=== PATIENT | male | born 1950 | race African-American/Black ===

== ENCOUNTER 2018-06-16 16:41 | Emergency (ER) | payer MEDICARE, MEDICAID ==
[~2018-06-16] VITALS: Ht 170.2 cm; Wt 89.0 kg
[~2018-06-16 16:41] MED LIST: GLYB5TAB7 PO
[2018-06-16 16:44] VITALS: BP 146/78
== END 2018-06-16 18:42 | disposition home or self-care (01) ==
LOC: ER 16:41
DX: M17.12 Unilateral primary osteoarthritis, left knee (principal); E11.9 Type 2 diabetes mellitus without complications; I10 Essential (primary) hypertension
CPT/HCPCS: 73562; 99283

== ENCOUNTER 2018-12-31 20:53 | Inpatient (IN) | payer MEDICARE, MEDICAID ==
[~2018-12-31] VITALS: Ht 170.2 cm; Wt 109.3 kg
[2018-12-31] MEDS ORDERED: KETOROLAC 30MG/ML VIAL IV STA (23:04)
[2019-01-01] VITALS (9 sets, daily range): BP systolic 125–172; BP diastolic 67–94
[2019-01-01 00:09] LABS: BASOPHILS % 0.6 % (0.0-2.0); EOSINOPHILS % 2.5 % (0.0-5.0); HEMATOCRIT. 30.3 % (42.0-52.0); HEMOGLOBIN. 9.9 g/dL (14.0-18.0); LYMPHOCYTES % 30.8 % (20.0-50.0); MEAN CORPUSCULAR HEMOGLOBIN 28.5 pg (28.0-32.0); MEAN CORPUSCULAR VOLUME 87.4 fL (80.0-94.0); MEAN PLATELET VOLUME 10.6 fl (7.4-10.4); MONOCYTES % 14.1 % (2.0-8.0); PLATELET 153 x1000/uL (130-400); RED BLOOD CELL COUNT 3.47 mill/uL (4.7-6.1); RED CELL DISTRIBUTION WIDTH 13.1 % (11.6-14.6)
[2019-01-01 00:12] LABS: CHLORIDE 110 mEq/L (98-107)
[2019-01-01] MEDS ORDERED: DEXTROSE 50% WATER 50ML SYRINGE IV ONE ×4 (00:39→07:00)
[2019-01-01] MEDS ORDERED: ASPIRIN 325MG TABLET PO SCH (02:00)
[2019-01-01] MEDS ORDERED: ACETAMINOPHEN 325MG TABLET PO PRN (09:45)
[2019-01-01] MEDS ORDERED: ONDANSETRON HCL 4MG/2ML INJ IV PRN (09:45)
[2019-01-01] MEDS ORDERED: DOCUSATE SODIUM 100MG CAPSULE PO PRN (09:45)
[2019-01-01] MEDS: ENOXAPARIN 40MG/0.4ML SYR SUBCUT SCH (11:48)
[2019-01-01] MEDS: CLONIDINE 0.1MG TABLET PO PRN (11:53)
[2019-01-01] MEDS ORDERED: INFLUENZA VIRUS VACCINE(AFLURIA) 0.5ML SYR IM ONE (13:00)
[2019-01-01] MEDS ORDERED: PNEUMOCOCCAL 23-VAL P-SAC VAC 0.5 ML IM ONE (13:00)
[2019-01-01] MEDS: DEXT 5%/0.45% NACL 1000ML 1,000 ML IV SCH (13:46)
[2019-01-01 17:52] LABS: CLARITY URINE CLEAR (CLEAR); COLOR URINE YELLOW (YELLOW); KETONES URINE NEGATIVE (NEGATIVE); LEUKOCYTE ESTERASE URINE NEGATIVE (NEGATIVE); NITRITE URINE NEGATIVE (NEGATIVE); OCCULT BLOOD URINE 1+ (NEGATIVE); PH URINE 5.5 (4.5-8.0); PROTEIN URINE 3+ (NEGATIVE); SPECIFIC GRAVITY URINE 1.014 (1.005-1.030); UROBILINOGEN URINE 0.2 E.U./dL (0.2-1.0)
[2019-01-01] MEDS ORDERED: TEMAZEPAM 15MG CAPSULE PO PRN (18:45)
[2019-01-01] MEDS ORDERED: ATORVASTATIN CALCIUM 40MG TABLET PO SCH (21:00)
[2019-01-01] MEDS ORDERED: DEXTROSE 50% WATER 50ML SYRINGE IV PRN (21:15)
[2019-01-01] MEDS: BLOOD SUGAR DIAGNOSTIC STRIP TEST SCH (21:28)
[2019-01-01] MEDS: INSULIN LISPRO 100 UNITS/ML SUBCUT SCH (21:43)
[2019-01-02] VITALS (8 sets, daily range): BP systolic 124–162; BP diastolic 62–97
[2019-01-02] MEDS: DEXT 5%/0.45% NACL 1000ML 1,000 ML IV SCH (03:33)
[2019-01-02] MEDS: CLONIDINE 0.1MG TABLET PO PRN (05:52)
[2019-01-02] MEDS: BLOOD SUGAR DIAGNOSTIC STRIP TEST SCH ×2 (06:50→11:50)
[2019-01-02] MEDS ORDERED: BLOOD SUGAR DIAGNOSTIC STRIP TEST SCH (06:50)
[2019-01-02] MEDS: CALCIUM ACETATE 667MG CAPSULE PO SCH ×2 (07:20→12:20)
[2019-01-02] MEDS: INSULIN LISPRO 100 UNITS/ML SUBCUT SCH ×2 (07:20→12:20)
[2019-01-02] MEDS ORDERED: INSULIN LISPRO 100 UNITS/ML SUBCUT SCH (07:20)
[2019-01-02 08:10] LABS: BASOPHILS % 0.8 % (0.0-2.0); EOSINOPHILS % 3.6 % (0.0-5.0); HEMATOCRIT. 29.2 % (42.0-52.0); HEMOGLOBIN. 9.4 g/dL (14.0-18.0); LYMPHOCYTES % 21.7 % (20.0-50.0); MEAN CORPUSCULAR HEMOGLOBIN 28.2 pg (28.0-32.0); MEAN PLATELET VOLUME 10.9 fl (7.4-10.4); MONOCYTES % 12.3 % (2.0-8.0); NEUTROPHILS % 61.6 % (40.0-76.0); PLATELET 127 x1000/uL (130-400); RED BLOOD CELL COUNT 3.32 mill/uL (4.7-6.1); RED CELL DISTRIBUTION WIDTH 13.4 % (11.6-14.6)
[2019-01-02 08:12] LABS: PHOSPHORUS 4.4 mg/dL (2.5-4.9)
[2019-01-02] MEDS ORDERED: CALCITRIOL 0.25MCG CAPSULE PO SCH (09:00)
[2019-01-02] MEDS ORDERED: AMLODIPINE 10MG TABLET PO SCH (09:00)
[2019-01-02] MEDS ORDERED: LOSARTAN POTASSIUM 100 MG TABLET PO SCH (09:00)
[2019-01-02] MEDS: ENOXAPARIN 40MG/0.4ML SYR SUBCUT SCH (09:12)
[2019-01-02 10:35] LABS: HEPATITIS B SURFACE ANTIGEN NEGATIVE
== END 2019-01-02 16:50 | disposition home or self-care (01) | DRG 683 ==
LOC: ER 20:53 → 3WST 01-01 01:52 → EDBEDREQ 01-01 01:59 → ENRESERV 01-01 02:15 → CANRESERV 01-01 02:15 → EDBEDREQSVC 01-01 02:21 → ENRESERV 01-01 07:31
PROVIDERS: ADMIT Internal Medicine Nephrology; ATTEND Internal Medicine Nephrology
DX: I13.11 Hypertensive heart and chronic kidney disease without heart failure, with stage 5 chronic kidney disease, or end stage renal disease (principal); N17.9 Acute kidney failure, unspecified; I42.8 Other cardiomyopathies; N18.5 Chronic kidney disease, stage 5; N25.81 Secondary hyperparathyroidism of renal origin; E11.649 Type 2 diabetes mellitus with hypoglycemia without coma; D63.1 Anemia in chronic kidney disease; E86.0 Dehydration; M17.12 Unilateral primary osteoarthritis, left knee; E11.22 Type 2 diabetes mellitus with diabetic chronic kidney disease; E78.5 Hyperlipidemia, unspecified; E83.51 Hypocalcemia; F17.210 Nicotine dependence, cigarettes, uncomplicated; Z71.6 Tobacco abuse counseling; Z90.49 Acquired absence of other specified parts of digestive tract
CPT/HCPCS: 36415; 71045; 73560; 76770; 80048; 80061; 81003; 82962; 83540; 83550; 83735; 83880; 83970; 84100; 84484; 86705; 86803; 87340; 90686; 90732; 93005; 99285; J1650; J1815; J1885

== ENCOUNTER 2021-02-25 11:10 | Inpatient (IN) | payer MEDICARE, MEDICAID ==
[~2021-02-25] VITALS: Ht 182.9 cm; Wt 108.9 kg
[2021-02-25 12:09] LABS: BASOPHILS % 0.1 % (0.0-2.0); HEMATOCRIT. 29.5 % (42.0-52.0); HEMOGLOBIN. 9.5 g/dL (14.0-18.0); LYMPHOCYTES % 7.3 % (20.0-50.0); MEAN CORPUSCULAR HEMOGLOBIN 28.5 pg (28.0-32.0); MEAN PLATELET VOLUME 8.7 fl (7.4-10.4); MONOCYTES % 7.8 % (2.0-8.0); NEUTROPHILS % 83.8 % (40.0-76.0); PLATELET 172 x1000/uL (130-400); RED BLOOD CELL COUNT 3.32 mill/uL (4.7-6.1); RED CELL DISTRIBUTION WIDTH 14.6 % (11.6-14.6)
[2021-02-25] MEDS ORDERED: DEXTROSE 50% WATER 50ML SYRINGE IV ONE (12:15)
[2021-02-25 12:18] LABS: CHLORIDE 117 mEq/L (98-107)
[2021-02-25] MEDS ORDERED: DEXTROSE 50% WATER 50ML SYRINGE IV STA (13:12)
[2021-02-25] MEDS ORDERED: DEXTROSE 10% WATER 250 ML IV ONE (15:00)
[2021-02-25] MEDS ORDERED: OCTREOTIDE 1,000 MCG in SODIUM CHLORIDE 0.9% 100 ML IV SCH (15:00)
[2021-02-25] MEDS ORDERED: OCTREOTIDE 1,000 MCG in SODIUM CHLORIDE 0.9% 100 ML IV ONE (15:00)
[2021-02-25] MEDS ORDERED: CLONIDINE 0.1MG TABLET PO PRN (17:30)
[2021-02-25] MEDS ORDERED: DEXTROSE 50% WATER 50ML SYRINGE IV PRN (17:30)
[2021-02-25] MEDS ORDERED: HYDROCODONE/ACETAMINOPHEN 5/325MG TABLET PO PRN (17:30)
[2021-02-25] MEDS ORDERED: DIPHENHYDRAMINE 50MG/ML VIAL IV PRN (17:30)
[2021-02-25] MEDS ORDERED: GUAIFENESIN 200MG/10ML SUGAR FREE UDC PO PRN (17:30)
[2021-02-25] MEDS ORDERED: ACETAMINOPHEN 650MG SUPP PR PRN (17:30)
[2021-02-25] MEDS ORDERED: DOCUSATE SODIUM 100MG CAPSULE PO PRN (17:30)
[2021-02-25] MEDS ORDERED: LORAZEPAM 0.5MG TABLET PO PRN (17:30)
[2021-02-25] MEDS ORDERED: DEXTROSE 10% WATER 500 ML IV NR (17:30)
[2021-02-25] MEDS ORDERED: IPRATROPIUM/ALBUTEROL 0.5-3(2.5)MG/3ML NEB NEB PRN (17:30)
[2021-02-25] MEDS ORDERED: ACETAMINOPHEN 325MG TABLET PO PRN (17:30)
[2021-02-25] MEDS ORDERED: MAGNESIUM/ALUMINUM HYDROXIDE/SIMETHICONE 30ML UDC PO PRN (17:30)
[2021-02-25] MEDS ORDERED: ONDANSETRON HCL 4MG/2ML INJ IV PRN (17:30)
[2021-02-25] MEDS ORDERED: NALOXONE HCL 0.4MG/ML VIAL IV PRN (17:45)
[2021-02-25] MEDS: BLOOD SUGAR DIAGNOSTIC STRIP TEST SCH ×5 (18:05→23:25)
[2021-02-25] MEDS: FAMOTIDINE 20MG TABLET PO SCH (21:57)
[2021-02-26] VITALS (7 sets, daily range): BP systolic 134–179; BP diastolic 78–103
[2021-02-26] MEDS: BLOOD SUGAR DIAGNOSTIC STRIP TEST SCH ×3 (12:00→20:00)
[2021-02-26] MEDS: LABETALOL HCL 200MG TABLET PO SCH ×2 (12:47→21:13)
[2021-02-26] MEDS: AMLODIPINE 5MG TABLET PO SCH (12:47)
[2021-02-26] MEDS: HYDRALAZINE HCL 50MG TABLET PO SCH ×2 (14:00→22:53)
[2021-02-26 17:40] LABS: BASOPHILS % 1.1 % (0.0-2.0); EOSINOPHILS % 3.4 % (0.0-5.0); HEMATOCRIT. 33.5 % (42.0-52.0); HEMOGLOBIN. 10.7 g/dL (14.0-18.0); LYMPHOCYTES % 27.6 % (20.0-50.0); MEAN CORPUSCULAR HEMOGLOBIN 28.6 pg (28.0-32.0); MEAN CORPUSCULAR VOLUME 89.8 fL (80.0-94.0); MEAN PLATELET VOLUME 9.1 fl (7.4-10.4); MONOCYTES % 12.9 % (2.0-8.0); PLATELET 191 x1000/uL (130-400); RED BLOOD CELL COUNT 3.74 mill/uL (4.7-6.1)
[2021-02-26 17:48] LABS: CHLORIDE 108 mEq/L (98-107); PROTHROMBIN TIME 10.9 sec (9.6-11.0)
[2021-02-26 17:55] LABS: PHOSPHORUS 2.9 mg/dL (2.5-4.9)
[2021-02-26 17:58] LABS: CREATINE KINASE 298 IU/L (39-308)
[2021-02-26 18:01] LABS: CREATINE KINASE MB FRACTION 3.3 ng/mL (0.5-3.6)
[2021-02-26] MEDS: FAMOTIDINE 20MG TABLET PO SCH (21:13)
[2021-02-27] VITALS: BP 150/105
[2021-02-27 02:00] VITALS: BP 154/78
[2021-02-27] MEDS: BLOOD SUGAR DIAGNOSTIC STRIP TEST SCH ×3 (04:00→08:00)
[2021-02-27] MEDS: INSULIN LISPRO 100 UNITS/ML SUBCUT SCH ×3 (04:00→08:00)
[2021-02-27] MEDS: HYDRALAZINE HCL 50MG TABLET PO SCH (05:43)
[2021-02-27] MEDS: AMLODIPINE 5MG TABLET PO SCH (09:23)
[2021-02-27] MEDS: LABETALOL HCL 200MG TABLET PO SCH (09:23)
[2021-02-27 11:35] LABS: HEMOGLOBIN. 8.6 g/dL (14.0-18.0); MEAN CORPUSCULAR HEMOGLOBIN 28.7 pg (28.0-32.0); MEAN CORPUSCULAR VOLUME 90.4 fL (80.0-94.0); MEAN PLATELET VOLUME 9.5 fl (7.4-10.4); PLATELET 161 x1000/uL (130-400); RED BLOOD CELL COUNT 2.98 mill/uL (4.7-6.1); RED CELL DISTRIBUTION WIDTH 14.8 % (11.6-14.6)
[2021-02-27 11:47] LABS: CHLORIDE 110 mEq/L (98-107)
[2021-02-27 11:58] LABS: CREATINE KINASE 221 IU/L (39-308)
[2021-02-27 12:00] LABS: CREATINE KINASE MB FRACTION 2.3 ng/mL (0.5-3.6)
[2021-02-27 13:13] LABS: PLATELET ESTIMATE NORMAL
== END 2021-02-27 18:24 | disposition left against medical advice (07) | DRG 637 ==
LOC: ER 11:10 → MICUSO 15:37 → 5EST 02-26 11:18
PROVIDERS: ADMIT Internal Medicine; ATTEND Internal Medicine
PROC: 5A1D70Z Performance of Urinary Filtration, Intermittent, Less than 6 Hours Per Day (ICD-10-PCS; principal; 2021-02-25)
PROC: 5A09357 Assistance with Respiratory Ventilation, Less than 24 Consecutive Hours, Continuous Positive Airway Pressure (ICD-10-PCS; 2021-02-25)
DX: E11.649 Type 2 diabetes mellitus with hypoglycemia without coma (principal); G93.41 Metabolic encephalopathy; I12.0 Hypertensive chronic kidney disease with stage 5 chronic kidney disease or end stage renal disease; I42.8 Other cardiomyopathies; D63.1 Anemia in chronic kidney disease; E11.22 Type 2 diabetes mellitus with diabetic chronic kidney disease; E78.5 Hyperlipidemia, unspecified; M19.90 Unspecified osteoarthritis, unspecified site; N18.6 End stage renal disease; N25.81 Secondary hyperparathyroidism of renal origin; Z91.19 Patient's noncompliance with other medical treatment and regimen; Z99.2 Dependence on renal dialysis; Z90.49 Acquired absence of other specified parts of digestive tract; Z20.822 Contact with and (suspected) exposure to COVID-19; Z53.29 Procedure and treatment not carried out because of patient's decision for other reasons
CPT/HCPCS: 36415; 71045; 80053; 82550; 82553; 82962; 83036; 83735; 83880; 84100; 84443; 84484; 85025; 87426; 93005; 93306; 93970; 99291; J2354; J7050

== ENCOUNTER 2021-09-22 10:13 | Inpatient (IN) | payer MEDICARE, MEDICAID ==
[~2021-09-22] VITALS: Ht 157.5 cm; Wt 85.7 kg
[2021-09-22 11:32] LABS: HEMOGLOBIN. 11.3 g/dL (14.0-18.0); MEAN CORPUSCULAR HEMOGLOBIN 29.9 pg (28.0-32.0); MEAN CORPUSCULAR VOLUME 92.6 fL (80.0-94.0); MEAN PLATELET VOLUME 8.9 fl (7.4-10.4); PLATELET 126 x1000/uL (130-400); RED BLOOD CELL COUNT 3.78 mill/uL (4.7-6.1); RED CELL DISTRIBUTION WIDTH 13.2 % (11.6-14.6)
[2021-09-22 11:40] LABS: CHLORIDE 99 mEq/L (98-107)
[2021-09-22 13:29] LABS: PLATELET ESTIMATE SLIGHTLY DECREASED
[2021-09-22 18:03] LABS: HEPATITIS B SURFACE ANTIGEN NEGATIVE
[2021-09-22] MEDS ORDERED: ONDANSETRON HCL 4MG/2ML INJ IV PRN (20:15)
[2021-09-22] MEDS ORDERED: DEXTROSE 50% WATER 50ML SYRINGE IV PRN (20:15)
[2021-09-22] MEDS ORDERED: ACETAMINOPHEN 325MG TABLET PO PRN (20:15)
[2021-09-22] MEDS ORDERED: CLONIDINE 0.1MG TABLET PO PRN (20:15)
[2021-09-22] MEDS: INSULIN LISPRO 100 UNITS/ML SUBCUT SCH (21:00)
[2021-09-22] MEDS: BLOOD SUGAR DIAGNOSTIC STRIP TEST SCH (21:00)
[2021-09-22 23:21] VITALS: BP 148/78
[2021-09-23] MEDS: BLOOD SUGAR DIAGNOSTIC STRIP TEST SCH ×4 (07:20→20:32)
[2021-09-23] MEDS: INSULIN LISPRO 100 UNITS/ML SUBCUT SCH ×4 (07:50→21:00)
[2021-09-23 12:00] VITALS: BP 126/69
[2021-09-23] MEDS: ENOXAPARIN 30MG/0.3ML SYR SUBCUT SCH (12:33)
[2021-09-23 16:00] VITALS: BP 140/82
[2021-09-23] MEDS: FOLIC ACID/VITAMIN B COMP W-C TABLET PO SCH (16:34)
[2021-09-23] MEDS: SODIUM CHLORIDE 0.45% 1,000 ML IV SCH (16:35)
[2021-09-23] MEDS: CALCITRIOL 0.25MCG CAPSULE PO SCH (16:35)
[2021-09-23] MEDS: PANTOPRAZOLE SODIUM 40 MG/VIAL IV SCH (17:21)
[2021-09-23] MEDS: CALCIUM ACETATE 667MG CAPSULE PO SCH (17:21)
[2021-09-23 18:34] LABS: HEMATOCRIT. 37.3 % (42.0-52.0); MEAN CORPUSCULAR HEMOGLOBIN 29.8 pg (28.0-32.0); MEAN CORPUSCULAR VOLUME 92.7 fL (80.0-94.0); MEAN PLATELET VOLUME 9.5 fl (7.4-10.4); PLATELET 149 x1000/uL (130-400); RED BLOOD CELL COUNT 4.03 mill/uL (4.7-6.1); RED CELL DISTRIBUTION WIDTH 13.5 % (11.6-14.6)
[2021-09-23 19:36] LABS: PLATELET ESTIMATE NORMAL
[2021-09-23 19:47] LABS: FERRITIN 769 ng/mL (22-322)
[2021-09-23 19:59] LABS: FOLIC ACID (FOLATE) SERUM >20 ng/mL ng/mL (>5.38); VITAMIN B12 SERUM 1823 pg/mL (211-911)
[2021-09-23 20:00] VITALS: BP 142/75
[2021-09-23 20:11] LABS: PHOSPHORUS 3.2 mg/dL (2.5-4.9)
[2021-09-24] VITALS: BP 152/74
[2021-09-24 04:00] VITALS: BP 154/82
[2021-09-24] MEDS: BLOOD SUGAR DIAGNOSTIC STRIP TEST SCH ×4 (06:18→20:44)
[2021-09-24] MEDS: INSULIN LISPRO 100 UNITS/ML SUBCUT SCH ×4 (07:50→20:44)
[2021-09-24 08:00] VITALS: BP 118/70
[2021-09-24] MEDS: PANTOPRAZOLE SODIUM 40 MG/VIAL IV SCH (08:19)
[2021-09-24] MEDS: CALCIUM ACETATE 667MG CAPSULE PO SCH ×3 (08:20→18:01)
[2021-09-24] MEDS: FOLIC ACID/VITAMIN B COMP W-C TABLET PO SCH (08:20)
[2021-09-24] MEDS: ENOXAPARIN 30MG/0.3ML SYR SUBCUT SCH (08:20)
[2021-09-24] MEDS: CALCITRIOL 0.25MCG CAPSULE PO SCH (08:20)
[2021-09-24] MEDS: SODIUM CHLORIDE 0.45% 1,000 ML IV SCH (11:26)
[2021-09-24 12:00] VITALS: BP 138/80
[2021-09-24 12:18] LABS: HEMATOCRIT. 34.8 % (42.0-52.0); HEMOGLOBIN. 11.9 g/dL (14.0-18.0); MEAN CORPUSCULAR VOLUME 90.5 fL (80.0-94.0); MEAN PLATELET VOLUME 9.2 fl (7.4-10.4); PLATELET 140 x1000/uL (130-400); RED BLOOD CELL COUNT 3.85 mill/uL (4.7-6.1); RED CELL DISTRIBUTION WIDTH 13.1 % (11.6-14.6)
[2021-09-24 16:00] VITALS: BP 142/83
[2021-09-24 20:00] VITALS: BP 146/82
[2021-09-25] VITALS: BP 128/82
[2021-09-25 04:00] VITALS: BP 133/78
[2021-09-25] MEDS: SODIUM CHLORIDE 0.45% 1,000 ML IV SCH (06:29)
[2021-09-25] MEDS: BLOOD SUGAR DIAGNOSTIC STRIP TEST SCH ×4 (07:20→21:00)
[2021-09-25] MEDS: INSULIN LISPRO 100 UNITS/ML SUBCUT SCH ×4 (07:50→21:00)
[2021-09-25 08:10] VITALS: BP 125/71
[2021-09-25] MEDS: ENOXAPARIN 30MG/0.3ML SYR SUBCUT SCH (08:54)
[2021-09-25] MEDS: CALCIUM ACETATE 667MG CAPSULE PO SCH ×3 (08:54→17:34)
[2021-09-25] MEDS: MEGESTROL ACETATE 400 MG/10 ML UDC PO SCH (08:54)
[2021-09-25] MEDS: PANTOPRAZOLE SODIUM 40 MG/VIAL IV SCH (08:54)
[2021-09-25] MEDS: CALCITRIOL 0.25MCG CAPSULE PO SCH (08:54)
[2021-09-25] MEDS: FOLIC ACID/VITAMIN B COMP W-C TABLET PO SCH (08:54)
[2021-09-25 12:00] VITALS: BP 152/79
[2021-09-25 16:00] VITALS: BP 128/65
[2021-09-25 16:14] LABS: BASOPHILS % 0.6 % (0.0-2.0); EOSINOPHILS % 2.7 % (0.0-5.0); HEMATOCRIT. 32.8 % (42.0-52.0); HEMOGLOBIN. 10.8 g/dL (14.0-18.0); MEAN CORPUSCULAR VOLUME 91.3 fL (80.0-94.0); MEAN PLATELET VOLUME 9.3 fl (7.4-10.4); MONOCYTES % 11.1 % (2.0-8.0); NEUTROPHILS % 60.6 % (40.0-76.0); PLATELET 144 x1000/uL (130-400); RED CELL DISTRIBUTION WIDTH 13.3 % (11.6-14.6)
[2021-09-25 20:00] VITALS: BP 124/76
[2021-09-25 22:29] LABS: PLATELET ESTIMATE NORMAL
[2021-09-26] VITALS: BP 117/80
[2021-09-26 04:00] VITALS: BP 125/74
[2021-09-26] MEDS: SODIUM CHLORIDE 0.45% 1,000 ML IV SCH ×2 (06:53→23:15)
[2021-09-26] MEDS: INSULIN LISPRO 100 UNITS/ML SUBCUT SCH ×4 (06:56→21:00)
[2021-09-26] MEDS: BLOOD SUGAR DIAGNOSTIC STRIP TEST SCH ×4 (06:56→21:00)
[2021-09-26 08:00] VITALS: BP 112/63
[2021-09-26] MEDS: ENOXAPARIN 30MG/0.3ML SYR SUBCUT SCH (08:43)
[2021-09-26] MEDS: FOLIC ACID/VITAMIN B COMP W-C TABLET PO SCH (08:43)
[2021-09-26] MEDS: CALCIUM ACETATE 667MG CAPSULE PO SCH ×3 (08:43→17:52)
[2021-09-26] MEDS: CALCITRIOL 0.25MCG CAPSULE PO SCH (08:43)
[2021-09-26] MEDS: PANTOPRAZOLE SODIUM 40 MG/VIAL IV SCH (08:43)
[2021-09-26] MEDS: MEGESTROL ACETATE 400 MG/10 ML UDC PO SCH (08:43)
[2021-09-26 12:00] VITALS: BP 109/64
[2021-09-26 16:00] VITALS: BP_SYST 116
[2021-09-26] MEDS ORDERED: BISACODYL 5MG TABLET PO PRN (18:45)
[2021-09-26] MEDS: BISACODYL 5MG TABLET PO SCH (18:48)
[2021-09-26 20:00] VITALS: BP 149/88
[2021-09-27] VITALS: BP 158/77
[2021-09-27 04:00] VITALS: BP 134/80
[2021-09-27] MEDS: BLOOD SUGAR DIAGNOSTIC STRIP TEST SCH ×3 (05:34→17:20)
[2021-09-27] MEDS: INSULIN LISPRO 100 UNITS/ML SUBCUT SCH ×3 (07:50→17:24)
[2021-09-27 08:00] VITALS: BP 139/76
[2021-09-27] MEDS: FOLIC ACID/VITAMIN B COMP W-C TABLET PO SCH (08:57)
[2021-09-27] MEDS: PANTOPRAZOLE SODIUM 40 MG/VIAL IV SCH (08:57)
[2021-09-27] MEDS: CALCIUM ACETATE 667MG CAPSULE PO SCH ×3 (08:57→17:27)
[2021-09-27] MEDS: CALCITRIOL 0.25MCG CAPSULE PO SCH (08:58)
[2021-09-27] MEDS: MEGESTROL ACETATE 400 MG/10 ML UDC PO SCH (08:58)
[2021-09-27] MEDS: BISACODYL 5MG TABLET PO SCH (08:58)
[2021-09-27] MEDS: ENOXAPARIN 30MG/0.3ML SYR SUBCUT SCH (08:59)
[2021-09-27] MEDS ORDERED: SORBITOL 70% SOLN 30ML PO SCH (09:00)
[2021-09-27] MEDS ORDERED: BISACODYL 5MG TABLET PO SCH (09:00)
[2021-09-27 12:12] VITALS: BP 132/75
[2021-09-27 14:55] VITALS: BP 118/70
[2021-09-27 16:00] VITALS: BP 152/82
== END 2021-09-27 17:55 | disposition home or self-care (01) | DRG 808 ==
LOC: ER 10:35 → 6EST 13:21 → EDBEDREQ 13:22 → EDBEDREQTM 13:22 → EDBEDREQSVC 13:22 → ENRESERV 23:00
PROVIDERS: ADMIT Internal Medicine; ATTEND Internal Medicine
DX: D61.818 Other pancytopenia (principal); N18.6 End stage renal disease; I43 Cardiomyopathy in diseases classified elsewhere; N25.81 Secondary hyperparathyroidism of renal origin; I13.11 Hypertensive heart and chronic kidney disease without heart failure, with stage 5 chronic kidney disease, or end stage renal disease; R62.7 Adult failure to thrive; D63.1 Anemia in chronic kidney disease; E86.0 Dehydration; E78.5 Hyperlipidemia, unspecified; F43.20 Adjustment disorder, unspecified; E11.22 Type 2 diabetes mellitus with diabetic chronic kidney disease; R63.0 Anorexia; R63.4 Abnormal weight loss; M19.90 Unspecified osteoarthritis, unspecified site; G89.29 Other chronic pain; Z90.49 Acquired absence of other specified parts of digestive tract; Z68.34 Body mass index [BMI] 34.0-34.9, adult; Z99.2 Dependence on renal dialysis; E87.6 Hypokalemia; N28.1 Cyst of kidney, acquired
CPT/HCPCS: 36415; 71045; 71250; 74176; 76700; 80048; 80053; 82270; 82378; 82607; 82728; 82746; 82962; 83540; 83550; 83605; 83735; 84100; 84145; 84153; 84439; 84443; 85025; 85044; 86705; 86709; 86803; 87340; 93005; 93970; 97161; 97165; 99285; C9113; J1650; J1815; G0103

== ENCOUNTER 2021-12-21 19:10 | Emergency (ER) | payer MEDICARE, MEDICAID ==
[~2021-12-21] VITALS: Ht 177.8 cm; Wt 91.0 kg
[2021-12-21 21:45] LABS: BASOPHILS % 0.9 % (0.0-2.0); EOSINOPHILS % 2.3 % (0.0-5.0); HEMATOCRIT. 31.8 % (42.0-52.0); HEMOGLOBIN. 10.4 g/dL (14.0-18.0); LYMPHOCYTES % 32.1 % (20.0-50.0); MEAN CORPUSCULAR HEMOGLOBIN 30.7 pg (28.0-32.0); MEAN CORPUSCULAR VOLUME 94.1 fL (80.0-94.0); MEAN PLATELET VOLUME 8.7 fl (7.4-10.4); MONOCYTES % 14.2 % (2.0-8.0); NEUTROPHILS % 50.5 % (40.0-76.0); PLATELET 130 x1000/uL (130-400); RED BLOOD CELL COUNT 3.38 mill/uL (4.7-6.1); RED CELL DISTRIBUTION WIDTH 13.6 % (11.6-14.6)
[2021-12-21 21:52] LABS: CHLORIDE 97 mEq/L (98-107)
[2021-12-22] VITALS: BP 134/71
== END 2021-12-22 00:20 | disposition home or self-care (01) ==
LOC: ER 19:10
DX: R53.1 Weakness (principal); E11.22 Type 2 diabetes mellitus with diabetic chronic kidney disease; I12.0 Hypertensive chronic kidney disease with stage 5 chronic kidney disease or end stage renal disease; N18.6 End stage renal disease; Z99.2 Dependence on renal dialysis; Z91.15 Patient's noncompliance with renal dialysis; Z98.890 Other specified postprocedural states
CPT/HCPCS: 36415; 80048; 84484; 85025; 93005; 99284

== ENCOUNTER 2022-01-01 14:47 | Inpatient (IN) | payer OTHER, MEDICAID ==
[~2022-01-01] VITALS: Ht 162.6 cm; Wt 73.5 kg
[2022-01-01] MEDS ORDERED: TETRACAINE 0.5% OPHTH DROPS 4ML BOTHEYE ONE (15:45)
[2022-01-01] MEDS ORDERED: FLUORESCEIN SODIUM 1MG/STRIP BOTHEYE ONE (15:45)
[2022-01-01] MEDS ORDERED: SODIUM CHLORIDE 0.9% 1,000 ML IV ONE (15:45)
[2022-01-01 16:50] LABS: BASOPHILS % 0.6 % (0.0-2.0); EOSINOPHILS % 2.4 % (0.0-5.0); HEMATOCRIT. 34.1 % (42.0-52.0); HEMOGLOBIN. 11.2 g/dL (14.0-18.0); LYMPHOCYTES % 40.5 % (20.0-50.0); MEAN CORPUSCULAR HEMOGLOBIN 30.4 pg (28.0-32.0); MEAN CORPUSCULAR VOLUME 92.7 fL (80.0-94.0); MEAN PLATELET VOLUME 9.4 fl (7.4-10.4); MONOCYTES % 12.4 % (2.0-8.0); NEUTROPHILS % 44.1 % (40.0-76.0); PLATELET 166 x1000/uL (130-400); RED BLOOD CELL COUNT 3.68 mill/uL (4.7-6.1); RED CELL DISTRIBUTION WIDTH 13.6 % (11.6-14.6)
[2022-01-01 17:08] LABS: CHLORIDE 98 mEq/L (98-107); PARTIAL THROMBOPLASTIN TIME 26.2 sec (23.4-31.0); PROTHROMBIN TIME 10.7 sec (9.6-11.0)
[2022-01-01 23:43] VITALS: BP 100/79
[2022-01-02] VITALS: BP 110/59
[2022-01-02] MEDS ORDERED: INFLUENZA VACCINE 05/PF 0.5 ML SYRINGE IM ONE (00:15)
[2022-01-02] MEDS ORDERED: HYDROCODONE/ACETAMINOPHEN 10/325MG TABLET PO PRN (00:30)
[2022-01-02] MEDS ORDERED: DEXTROSE 50% WATER 50ML SYRINGE IV PRN (00:30)
[2022-01-02] MEDS ORDERED: ACETAMINOPHEN 325MG TABLET PO PRN (00:30)
[2022-01-02] MEDS: BLOOD SUGAR DIAGNOSTIC STRIP TEST SCH ×3 (00:50→11:40)
[2022-01-02] MEDS: DOCUSATE SODIUM 100MG CAPSULE PO SCH ×2 (01:02→09:00)
[2022-01-02 04:00] VITALS: BP 110/59
[2022-01-02] MEDS: INSULIN LISPRO 100 UNITS/ML SUBCUT SCH ×2 (06:43→13:15)
[2022-01-02 08:00] VITALS: BP 125/71
[2022-01-02 12:00] VITALS: BP 137/69
[2022-01-02] MEDS ORDERED: DORZOLAM/TIMOLOL 2.23/0.68% OPHTH DROPS 10ML BOTHEYE SCH (12:00)
[2022-01-02 13:49] VITALS: BP 137/69
[2022-01-02] MEDS ORDERED: XALAO BOTHEYE (15:53)
[2022-01-02] MEDS ORDERED: DORZ10DR12 BOTHEYE (15:53)
[2022-01-02] MEDS ORDERED: LATANOPROST 0.005% OPHTH DROPS 2.5ML BOTHEYE SCH (21:00)
== END 2022-01-02 14:45 | disposition home or self-care (01) | DRG 124 ==
LOC: ER 15:04 → 7EST 18:30 → ENRESERV 22:30
PROVIDERS: ADMIT Internal Medicine; ATTEND Internal Medicine
DX: E11.36 Type 2 diabetes mellitus with diabetic cataract (principal); N18.6 End stage renal disease; I12.0 Hypertensive chronic kidney disease with stage 5 chronic kidney disease or end stage renal disease; E11.22 Type 2 diabetes mellitus with diabetic chronic kidney disease; H26.9 Unspecified cataract; Z99.2 Dependence on renal dialysis; Z91.15 Patient's noncompliance with renal dialysis; Z90.49 Acquired absence of other specified parts of digestive tract
CPT/HCPCS: 36415; 71045; 80053; 82962; 83880; 84484; 85025; 86850; 86900; 90686; 93005; 99285; J1815; J7030

== ENCOUNTER 2022-04-12 08:10 | Day surgery (SDC) | payer MEDICARE, MEDICAID ==
[~2022-04-12] VITALS: Ht 167.6 cm; Wt 83.0 kg
[~2022-04-12 08:10] MED LIST changes: +BALANCED SALT IRRIG SOLN COMB1 500ML OP NR; +DORZ10DR12 BOTHEYE; +HYALURONATE SODIUM 10 MG/ML 0.55ML SYRINGE IO ONE; +XALAO BOTHEYE
[2022-04-12] MEDS ORDERED: TROPICAMIDE 1% OPHTH DROPS 15ML LEFTEYE ONE (08:30)
[2022-04-12] MEDS ORDERED: CYCLOPENTOLATE HCL 1% OPHTH DROPS 2ML LEFTEYE ONE (08:30)
[2022-04-12] MEDS ORDERED: PHENYLEPHRINE HCL 10% OPHTH DROPS 5ML LEFTEYE ONE (08:30)
[2022-04-12] MEDS ORDERED: SODIUM CHLORIDE 0.9% 500 ML IV ONE (09:15)
[2022-04-12] MEDS ORDERED: NEO/POLYMYX B SULF/DEXAMETH OPHTH OINT 3.5GM ONE (10:51)
[2022-04-12] MEDS ORDERED: CYCLOPENTOLATE HCL 1% OPHTH DROPS 2ML ONE (10:51)
[2022-04-12] MEDS ORDERED: CIPROFLOXACIN 0.3% OPHTH SOLN 2.5ML ONE (10:51)
[2022-04-12] MEDS ORDERED: PILOCARPINE HCL 2% OPHTH DROPS 15ML ONE (10:51)
[2022-04-12] MEDS ORDERED: TROPICAMIDE 1% OPHTH DROPS 15ML ONE (10:51)
[2022-04-12] MEDS ORDERED: TETRACAINE 0.5% OPHTH DROPS 4ML ONE (10:51)
[2022-04-12] MEDS ORDERED: BALANCED SALT IRRIG SOLN 15ML ONE (10:51)
[2022-04-12] MEDS ORDERED: PHENYLEPHRINE HCL 10% OPHTH DROPS 5ML ONE (10:51)
[2022-04-12] MEDS ORDERED: LIDOCAINE HCL/PF 2% 20 MG/ML 10ML VIAL ONE (10:51)
[2022-04-12] MEDS ORDERED: MIDAZOLAM HCL 2 MG/2 ML VIAL ONE (12:05)
[2022-04-12] MEDS ORDERED: FENTANYL CITRATE/PF 50MCG/ML 2ML VIAL ONE (12:05)
[2022-04-12] MEDS ORDERED: HEPARIN 1000 UNITS/ML 10ML ONE (12:55)
== END 2022-04-12 15:00 | disposition home or self-care (01) ==
LOC: OR 08:10 → EDBD 10:30 → OR 15:00
PROVIDERS: ATTEND Ophthalmology
DX: E11.36 Type 2 diabetes mellitus with diabetic cataract (principal); H25.89 Other age-related cataract; E11.22 Type 2 diabetes mellitus with diabetic chronic kidney disease; I12.0 Hypertensive chronic kidney disease with stage 5 chronic kidney disease or end stage renal disease; N18.6 End stage renal disease; Z79.84 Long term (current) use of oral hypoglycemic drugs; Z79.899 Other long term (current) drug therapy; Z98.890 Other specified postprocedural states; Z99.2 Dependence on renal dialysis; Z20.822 Contact with and (suspected) exposure to COVID-19
CPT/HCPCS: 36415; 66984; 82962; 84132; 87426; A4217; C9803; J1644; J2250; J3010; J3490; V2632; Z7610

== ENCOUNTER 2023-01-25 12:30 | Day surgery (SDC) | payer MEDICARE, MEDICAID ==
[~2023-01-25] VITALS: Ht 177.8 cm; Wt 91.0 kg
[~2023-01-25 12:30] MED LIST changes: -BALANCED SALT IRRIG SOLN COMB1 500ML OP NR; -DORZ10DR12 BOTHEYE; +DORZ10DR32 BOTHEYE; -HYALURONATE SODIUM 10 MG/ML 0.55ML SYRINGE IO ONE
[2023-01-25 12:42] VITALS: BP 131/65; PULSE 74; RESP 18; TEMP 98.3; O2SAT 99
[2023-01-25 13:54] LABS: BASOPHILS % 0.4 % (0.0-2.0); EOSINOPHILS % 1.9 % (0.0-5.0); HEMATOCRIT. 33.9 % (42.0-52.0); HEMOGLOBIN. 10.9 g/dL (14.0-18.0); LYMPHOCYTES % 25.4 % (20.0-50.0); MEAN CORPUSCULAR HEMOGLOBIN 30.9 pg (28.0-32.0); MEAN CORPUSCULAR VOLUME 96.6 fL (80.0-94.0); MEAN PLATELET VOLUME 10.4 fl (7.4-10.4); NEUTROPHILS % 60.3 % (40.0-76.0); PLATELET 139 x1000/uL (130-400); RED BLOOD CELL COUNT 3.51 mill/uL (4.7-6.1); RED CELL DISTRIBUTION WIDTH 16.1 % (11.6-14.6); WHITE BLOOD COUNT 5.1 x1000/uL (4.5-11.0)
[2023-01-25] MEDS ORDERED: BALANCED SALT IRRIG SOLN COMB2 500ML OP ONE (14:36)
[2023-01-25] MEDS ORDERED: HYALURONATE SODIUM 10 MG/ML 0.55ML SYRINGE IO ONE ×2 (14:36→16:48)
[2023-01-25 14:39] LABS: PROTHROMBIN TIME 10.9 sec (9.6-11.0)
[2023-01-25] MEDS ORDERED: MIDAZOLAM HCL 2 MG/2 ML VIAL ONE (14:39)
[2023-01-25] MEDS ORDERED: FENTANYL CITRATE/PF 50MCG/ML 2ML VIAL ONE ×2 (14:39→16:44)
[2023-01-25] MEDS ORDERED: TRIAMCINOLONE ACETONIDE 40MG/ML 1ML VIAL ONE (14:48)
[2023-01-25 15:35] LABS: ALANINE AMINOTRANSFERASE < 7 IU/L (10-49); ALBUMIN 4.6 g/dL (3.2-4.8); ASPARTATE AMINOTRANSFERASE 78 IU/L (<34); BILIRUBIN TOTAL 0.7 mg/dL (0.1-1.0); CALCIUM 9.6 mg/dL (8.7-10.4); CARBON DIOXIDE 29 mEq/L (21-32); CHLORIDE 101 mEq/L (98-107); GLUCOSE 87 mg/dL (70-105); PROTEIN TOTAL 8.4 g/dL (6.0-8.3); SODIUM 139 mEq/L (136-145); UREA NITROGEN BLOOD 41 mg/dL (9-23)
[2023-01-25] MEDS ORDERED: ONDANSETRON HCL 4MG/2ML INJ IV PRN (16:00)
[2023-01-25] MEDS ORDERED: HYDROMORPHONE HCL/PF 2MG/ML CPJ IV PRN (16:00)
[2023-01-25] MEDS ORDERED: MEPERIDINE HCL/PF 25MG/ML CPJ IV PRN (16:00)
[2023-01-25] MEDS ORDERED: LABETALOL 5MG/ML SYR 20 MG/4 ML SYRINGE IV PRN (16:00)
[2023-01-25] MEDS ORDERED: TRYPAN BLUE 0.5 ML DISP.SYRIN IO ONE (16:05)
[2023-01-25 16:19] LABS: CREATININE 6.4 mg/dL (0.6-1.3); POTASSIUM 7.1 mEq/L (3.5-5.1)
== END 2023-01-25 18:30 | disposition home or self-care (01) ==
LOC: ER 12:30 → OR 14:23
PROVIDERS: ATTEND Ophthalmology
DX: E11.36 Type 2 diabetes mellitus with diabetic cataract (principal); H25.89 Other age-related cataract; E11.39 Type 2 diabetes mellitus with other diabetic ophthalmic complication; I12.0 Hypertensive chronic kidney disease with stage 5 chronic kidney disease or end stage renal disease; N18.6 End stage renal disease; E11.22 Type 2 diabetes mellitus with diabetic chronic kidney disease; Z99.2 Dependence on renal dialysis; Z79.899 Other long term (current) drug therapy; Z98.890 Other specified postprocedural states
CPT/HCPCS: 66984; 66170; 80053; 85025; 85610; 36415; 93005; 99291; J3010; Q9957; J2250; J3301; J3490; A4217; Z7610 ×14; V2632